=== PATIENT | female | born 1955 | race Caucasian/White ===

== ENCOUNTER 2018-06-11 22:12 | Emergency (ER) | payer OTHER ==
[~2018-06-11] VITALS: Ht 167.6 cm; Wt 72.7 kg
[2018-06-11 22:16] VITALS: Ht 167.6 cm; Wt 72.7 kg
[2018-06-11] MEDS ORDERED: [UNRECOGNIZED DRUG - OTHER] (22:19)
[2018-06-11 22:54] LABS: APPEARANCE CLEAR (CLEAR); COLOR YELLOW (YELLOW); GLUCOSE NEGATIVE (NEGATIVE); NITRITE NEGATIVE (NEGATIVE); PROTEIN NEGATIVE (NEGATIVE)
[2018-06-11 22:55] LABS: BASOPHILS 0.3 % (0-2); BILIRUBIN NEGATIVE (NEGATIVE); EOSINOPHILS 0.5 % (0-7); HEMATOCRIT 40.4 % (36.0-48.0); HEMOGLOBIN 13.6 g/dL (12-16); IMMATURE GRANULOCYTES 0.4 % (0-5); KETONE NEGATIVE (NEGATIVE); MCH 30.6 pg (26.0-34.0); MCHC 33.7 g/dL (31.0-37.0); MEAN PLATELET VOLUME 9.4 fL (7.4-10.4); MONOCYTES 6.6 % (2-11); NEUTROPHILS 71.2 % (40-80); PLATELET COUNT 299 10x3/uL (130-400); RBC 4.44 10x6/uL (4.00-5.40); RDW 13.3 % (11.5-14.5); UROBILINOGEN NORMAL (NORMAL); WBC 10.7 10x3/uL (4.8-10.8)
[2018-06-11 23:23] LABS: ALBUMIN 3.8 g/dL (3.4-5.0); ALKALINE PHOSPHATASE 46 U/L (46-116); ALT (SGPT) 27 U/L (10-68); AMYLASE - SERUM 39 U/L (25-115); BILIRUBIN - TOTAL 0.58 mg/dL (0.2-1.3); CALC OSMOLALITY 273 mosm/kg (275-300); CALCIUM 9.4 mg/dL (8.5-10.1); CARBON DIOXIDE 27.6 mmol/L (21.0-32.0); CHLORIDE - SERUM 100 mmol/L (98-107); CREATININE - SERUM 0.7 mg/dL (0.6-1.3); GLUCOSE 136 mg/dL (74-106); LIPASE 132 U/L (73-393); PROTEIN - SERUM 7.5 g/dL (6.4-8.2); SODIUM 136 mmol/L (136-145); TRIGLYCERIDE 93 mg/dL (30-200); UREA NITROGEN 12 mg/dL (7-18); eGFR NON AFRICAN AMERICAN 90 mL/min (90-120)
[2018-06-12] MEDS ORDERED: NORCO 10-325 TA1 TAB PO (00:29)
[2018-06-12 00:36] VITALS: BP 148/86
== END 2018-06-12 00:36 | disposition home or self-care (01) ==
LOC: D.ER 22:12
PROVIDERS: Emergency Medicine
DX: M54.5 Low back pain (principal); R10.30 Lower abdominal pain, unspecified